=== PATIENT | female | born 1945 | race Caucasian/White ===

== ENCOUNTER 2017-08-18 21:02 | Emergency (ER) | payer BC ==
--- NOTE | 2017-08-18 21:14 | PDOC ---
Rapid Medical Evaluation Time Seen by Provider: 08/18/17 21:11 Medical Evaluation: Allergies Allergy/AdvReac Type Severity Reaction Status Date / Time No Known Allergies Allergy Verified 03/03/15 01:59 08/18/17 21:11 I have performed a brief in-person evaluation of this patient. The patient presents with a chief complaint of: left lateral neck pain starting at 1330 today Pertinent physical exam findings: left SCM spasm. I have ordered the following: nothing The patient will proceed to the ED for further evaluation. Discharge Disposition - Diagnosis Neck pain - Referrals - Patient Instructions - Post Discharge Activity
[2017-08-18 21:20] VITALS: BP 133/92; PULSE 87; TEMP 97.7; BMI 23.6
--- NOTE | 2017-08-18 21:55 | PDOC ---
History of Present Illness - General Chief Complaint: Pain Stated Complaint: NECK PAIN Time Seen by Provider: 08/18/17 21:11 - History of Present Illness Initial Comments: 71-year-old female with a past medical history significant for hypertension and a coma presents for evaluation of one day of left-sided neck pain. She describes her pain is achy exacerbated with motion relieved with rest and without radiation. She took Naprosyn today and got some relief. 08/18/17 21:52 Past History - Past Medical History Allergies/Adverse Reactions: Allergies Allergy/AdvReac Type Severity Reaction Status Date / Time No Known Allergies Allergy Verified 03/03/15 01:59 Home Medications: Ambulatory Orders Lisinopril 20 mg PO DAILY #7 tablet 10/09/14 Cyclobenzaprine HCl [Flexeril 10 mg] 10 mg PO HS PRN #10 tablet 08/18/17 Anemia: No Asthma: No Cancer: No Cardiac Disorders: Yes (HEART MURMUR) CVA: No COPD: No CHF: No DVT: No Dementia: No Diabetes: No GI Disorders: Yes (DYSPHAGIA, GERD, H/O H.PYLORI) Disorders: No HTN: Yes Liver Disease: No Seizures: No Thyroid Disease: No Other medical history: glaucoma, arthritis - Surgical History Abdominal Surgery: No Appendectomy: No Cardiac Surgery: No Cholecystectomy: No Lung Surgery: No Neurologic Surgery: No Orthopedic Surgery: No - Immunization History Immunization Up to Date: Yes - Suicide/Smoking/Psychosocial Hx Smoking Status: No Smoking History: Never smoked Number of Cigarettes Smoked Daily: 0 Information on smoking cessation initiated: No Hx Alcohol Use: No Drug/Substance Use Hx: No Substance Use Type: None Review of Systems - Review of Systems Musculoskeletal: Yes: Muscle Pain, Neck Pain All Other Systems: Reviewed and Negative *Physical Exam - Vital Signs Last Vital Signs Temp Pulse Resp BP Pulse Ox 97.7 F 87 20 133/92 98 08/18/17 21:16 08/18/17 21:16 08/18/17 21:16 08/18/17 21:16 08/18/17 21:16 - Physical Exam Comments: Cervical spine skin color and temperature within normal limits she has decreased range of motion she has tenderness in the left trapezium. She has 5 out of 5 strength in bilateral upper extremities without any gross sensorimotor deficits she is unable to tolerate her Spurling maneuver but she has no radicular symptoms. She is neurovascularly intact. 08/18/17 21:52 Medical Decision Making - Medical Decision Making This is a cervical strain in the 71-year-old female I'll treat her with Flexeril and close follow-up with her primary care physician. 08/18/17 21:53 *DC/Admit/Observation/Transfer Diagnosis at time of Disposition: Neck pain, Cervical strain - Discharge Dispostion Disposition: HOME Condition at time of disposition: Stable Decision to Admit order: No - Referrals Referrals: James Bartholomew MD [Primary Care Provider] - - Patient Instructions Printed Discharge Instructions: DI for Cervical Muscle Strain Additional Instructions: Return to the emergency room should her symptoms worsen or go unresolved. I've called when a muscle relaxer which will make you sleepy. Take the pill before bedtime. Follow-up with your primary care physician for further evaluation or treatment options. Do not take any more Naprosyn or any other anti- inflammatories as this will interfere with her hypertensive medicine - Post Discharge Activity
== END 2017-08-18 21:55 | disposition home or self-care (01) ==
LOC: JERFT 21:02
DX: S16.1XXA Strain of muscle, fascia and tendon at neck level, initial encounter (principal); I10 Essential (primary) hypertension; R01.1 Cardiac murmur, unspecified; M12.9 Arthropathy, unspecified; H40.9 Unspecified glaucoma; Z87.19 Personal history of other diseases of the digestive system; X58.XXXA Exposure to other specified factors, initial encounter; Y93.89 Activity, other specified; Y92.039 Unspecified place in apartment as the place of occurrence of the external cause; Y99.8 Other external cause status
CPT/HCPCS: 99281-25

== ENCOUNTER 2018-05-23 22:49 | Inpatient (IN) | payer BC ==
--- NOTE | 2018-05-24 00:01 | PDOC ---
History of Present Illness - General Chief Complaint: Pain, Acute Stated Complaint: PAIN Time Seen by Provider: 05/23/18 23:56 History Source: Patient, Old Records Exam Limitations: No Limitations - History of Present Illness Initial Comments: HPI: 72 y/o female presenting to [facility] complaining of worsening acute on chronic left shoulder pain. Pt reports falling in January 2018 onto the left shoulder. Has experienced pain ever since. Denies new trauma to the area. States the pain is just more intense. Starts in the middle of her shoulder and travels throughout the whole arm. Has difficulty lifting the arm above 90 degrees. Was evaluated at this facility in Mar 2018 and told it was likely arthritic changes. Followed up with PCP, Dr. Bartholomew, who injected the joint. Pt reports this did not help. Now uses Naproxen and Tylenol daily for the pain. Incidentally, the pt states she did not take all of her home antihypertensives. Found her BP to be elevated to 160s and her pulse rate was fast. Denies chest pain or shortness of breath. Reports normal cardiac cath in 2010. PCP: Dr. Bartholomew Medical Hx: - HTN Past History - Past Medical History Allergies/Adverse Reactions: Allergies Allergy/AdvReac Type Severity Reaction Status Date / Time No Known Allergies Allergy Verified 03/03/15 01:59 Home Medications: Ambulatory Orders Lisinopril 20 mg PO DAILY #7 tablet 10/09/14 Cyclobenzaprine HCl [Flexeril 10 mg] 10 mg PO HS PRN #10 tablet 08/18/17 Anemia: No Asthma: No Cancer: No Cardiac Disorders: Yes (HEART MURMUR) CVA: No COPD: No CHF: No DVT: No Dementia: No Diabetes: No GI Disorders: Yes (DYSPHAGIA, GERD, H/O H.PYLORI) Disorders: No HTN: Yes Liver Disease: No Seizures: No Thyroid Disease: No - Surgical History Abdominal Surgery: No Appendectomy: No Cardiac Surgery: No Cholecystectomy: No Lung Surgery: No Neurologic Surgery: No Orthopedic Surgery: No - Immunization History Immunization Up to Date: Yes - Suicide/Smoking/Psychosocial Hx Smoking Status: No Smoking History: Never smoked Number of Cigarettes Smoked Daily: 0 Information on smoking cessation initiated: No Hx Alcohol Use: No Drug/Substance Use Hx: No Substance Use Type: None Review of Systems - Review of Systems Able to Perform ROS?: Yes Comments:: In addition to that documented in the HPI above, the additional ROS was obtained : Constitutional: Denies fevers or chills Head: Denies vision changes ENMT: Denies sore throat CV: Denies chest pain Resp: Denies SOB GI: Denies vomiting or diarrhea : Denies painful urination MSK: Per HPI Skin: Denies new rashes Neuro: Denies new numbness or tingling or weakness Endocrine: Denies polyuria Heme: Denies bleeding or bruising *Physical Exam - Vital Signs Last Vital Signs Temp Pulse Resp BP Pulse Ox 98.1 F 130 H 20 165/92 96 05/23/18 22:50 05/23/18 22:50 05/23/18 22:50 05/23/18 22:50 05/23/18 22:50 - Physical Exam Comments: Constitutional: Well-developed, well-nourished elderly adult female in no acute distress but obvious mild discomfort. Found semi-fowlers on hospital bed. Alert and oriented x4. Answered all questions appropriately and completely. Speech was non-labored, non-pressured. Head: Normocephalic. No obvious external signs of trauma. Eyes: Sclerae white. Ears: Hearing grossly intact. Nose: No nasal discharge. Neck: Supple, trachea is midline. Cardiovascular / Chest: Irregularly irregular rate and rhythm. No murmur, rubs, clicks, or gallops. Peripheral pulses: radial pulses full. No pretibial edema. Respiratory: Breathing unlabored. Equal chest rise and fall. Clear to auscultation bilaterally. No stridor, no wheezing, no rhonchi. Gastrointestinal: abdomen is soft, non-tender, non-distended. Neuro: Alert and oriented. Moving all four extremities spontaneously. Skin: Warm, dry, and intact. No bruising, rashes, or other lesions. MSK: Pain with point tenderness to left shoulder. Worse when abducting shoulder. No obvious bony deformities. Able to flex and extend at elbow and wrist. No obvious scapula or clavicle deformities. Psych: Affect: appropriate. Mood: normal. ED Treatment Course - LABORATORY CBC & Chemistry Diagram: 05/24/18 00:46 05/24/18 00:46 - ADDITIONAL ORDERS Additional order review: 05/24/18 05/24/18 00:46 00:46 PT with INR 11.20 INR 0.95 PTT (Actin FS) 34.3 Sodium 143 Potassium 3.4 L Chloride 108 H Carbon Dioxide 27 Anion Gap 8 BUN 16 Creatinine 0.5 L Creat Clearance w eGFR 120.61 Random Glucose 116 H Calcium 8.8 Total Bilirubin 0.5 AST 42 H ALT 50 Alkaline Phosphatase 78 Creatine Kinase 194 H Troponin I < 0.02 Total Protein 7.1 Albumin 4.0 05/24/18 00:46 RBC 4.25 MCV 87.4 MCHC 33.0 RDW 14.2 MPV 8.1 Neutrophils % 80.0 D Lymphocytes % 13.5 D Monocytes % 5.4 Eosinophils % 0.5 Basophils % 0.6 Medical Decision Making - Medical Decision Making *Reviewed vital signs, nursing notes, and prior visit documentation (if available). 72 y/o female presenting for worsening acute on chronic left shoulder pain. Found to be hypertensive and tachycardic in triage. Afebrile. Suspect hypertension is secondary to not adherence to antihypertensives this morning. EKG revealed atrial fibrillation. No history of similar rhythm in previous EKGs. Low suspicion for ACS, however pts worsening shoulder pain is possibly an anginal equivalent. Will obtain CBC, CMP, Troponin, and Coags. Will obtain CXR and repeat the imaging of the left shoulder. Troponin not elevated. Low suspicion for acute RI as pt states pain has been worse for >3 hours. 02:[address] Bartholomew. Verbally appraised of the pts HPI, ED course, and current plan of management. Requests the pt be anticoagulated with lovenox. Requested cardiology consult with Dr. Baeza. Request placed in [facility]. Pts CXR unremarkable for acute cardiopulmonary process per ED wet read. Radiology report pending. Left shoulder films pending at time of admission. *DC/Admit/Observation/Transfer Diagnosis at time of Disposition: New onset a-fib Left shoulder pain Qualifiers: Chronicity: chronic Qualified Code(s): M25.512 - Pain in left shoulder - Discharge Dispostion Condition at time of disposition: Fair Decision to Admit order: Yes - Referrals - Patient Instructions - Post Discharge Activity
[2018-05-24] MEDS ORDERED: ONDANSETRON 4 MG/2 ML VIAL IVPUSH ONE (00:24)
[2018-05-24] MEDS ORDERED: morphine CARPU-JECT 2 MG/1 ML DISP.SYRIN IVPUSH ONE (00:24)
[2018-05-24] MEDS ORDERED: SODIUM CHLORIDE 0.9% 500 ML INFUS.BAG IV ONE (00:25)
[2018-05-24 00:54] LABS: BASO % 0.6 % (0-2.0); EOS % 0.5 % (0-4.5); HEMATOCRIT 37.2 % (32.4-45.2); HEMOGLOBIN 12.3 GM/dL (10.7-15.3); LYMPH % 13.5 % (8-40); MCH 28.8 pg (25.7-33.7); MEAN CELL VOLUME 87.4 fl (80-96); MEAN PLT VOLUME 8.1 fl (7.5-11.1); MONO % 5.4 % (3.8-10.2); PLATELET COUNT 221 K/MM3 (134-434); RBC 4.25 M/mm3 (3.60-5.2); RDW 14.2 % (11.6-15.6); WHITE BLOOD COUNT 10.2 K/mm3 (4.0-10.0)
[2018-05-24] MEDS ORDERED: MORPHINE SULFATE 2 MG/ML VIAL ONE (01:04)
[2018-05-24] MEDS ORDERED: ONDANSETRON 4 MG/2 ML VIAL ONE (01:06)
--- NOTE | 2018-05-24 01:18 | PDOC ---
Attending Attestation - Resident Resident Name: Bereket Loera - ED Attending Attestation I have performed the following: I have examined & evaluated the patient, The case was reviewed & discussed with the resident, I agree w/resident's findings & plan, Exceptions are as noted - HPI HPI: 05/24/18 01:28 Conversant 72-year-old female presented to the emergency room because of persistent but increasing pain in her left shoulder. She had fallen some months ago and has since had limited range of motion of his left shoulder. She has had prior radiographs of the shoulder since the trauma, and they have always been negative for any fracture Upon arrival, she was in rapid A. flutter with a rate of 130 - Physicial Exam PE: 05/24/18 01:30 Well-nourished well-developed 72-year-old female who is currently in no acute distress. Head is normocephalic, atraumatic eyes maxim eomi Neck is supple Lungs clear to auscultation. CVS Irregularly irregular rhythm ext no edema skin warm and dry Left arm has intact sensation,no obvious deformity,good ulna and radial pulses, pt cannot raise her left arm above her head due to pain neuro axox3,ambulatory,no gross focal neuro deficits psych appropriate - Medical Decision Making 05/24/18 01:34 pt is currently in rate controlled aflutter denies any chest pain or sob will admit to telemetry, new onset AFIB,aflutter, anticoagulant
[2018-05-24] MEDS ORDERED: ASPIRIN 81 MG CHEWABLE TABLETS PO ONE (01:22)
[2018-05-24 01:26] LABS: ALK PHOS 78 U/L (45-117); ANION GAP 8 MMOL/L (8-16); BILIRUBIN,TOTAL 0.5 mg/dL (0.2-1); BLOOD UREA NITROGEN 16 mg/dL (7-18); CALCIUM 8.8 mg/dL (8.5-10.1); CHLORIDE 108 mmol/L (98-107); CO2 27 mmol/L (21-32); CREATININE 0.5 mg/dL (0.55-1.3); GLUCOSE,RANDOM 116 mg/dL (74-106); POTASSIUM 3.4 mmol/L (3.5-5.1); SGOT/AST 42 U/L (15-37); SGPT/ALT 50 U/L (13-61); SODIUM 143 mmol/L (136-145); TOT PROT 7.1 g/dl (6.4-8.2)
[2018-05-24] MEDS ORDERED: ASPIRIN 325 MG TABLET ONE (01:30)
[2018-05-24 01:32] LABS: INR 0.95 (0.83-1.09); PROTHROMBIN TIME (PATIENT) 11.2 SEC (9.7-13.0)
[2018-05-24 01:35] LABS: ACTIVATED PTT 34.3 SECONDS (25.2-36.5)
[2018-05-24] MEDS ORDERED: ENOXAPARIN NA (PORCINE) 80 MG/0.8 ML DISP.SYRIN SQ ONE ×2 (02:03→03:25)
--- NOTE | 2018-05-24 10:41 | CON.CARD ---
Consult Consult Specialty:: Cardiology Referred by:: Dr. Bartholomew Reason for Consultation:: Cardiac evaluation - History of Present Illness Chief Complaint: Left shoulder pain but also with atrial flutter/fibrillation History of Present Illness: Patient is a 72 year old female with history of HTN who presents with persistent left shoulder pain and difficult raising the left arm. She had fallen back in January onto her left side and had seen Dr. Bartholomew. She did not see an Orthopedic surgeon at that time. She denies chest pain, SOB or palpitations. She denies paroxysmal nocturnal dyspnea or orthopnea. She denies fever or chills. She denies nausea, vomiting, diarrhea or abdominal pain. She denies headache or lightheadedness. ECG reveals atrial flutter with variable block. This appears to be a new onset and she had not taken any anticoagulation previously. She is awake and alert. She denies cough or expectorations. She was found with elevated BP to 160 systolic with tachycardia in the ER. - History Source History Provided By: Patient, Medical Record Limitations to Obtaining History: No Limitations - Past Medical History Cardio/Vascular: Yes: HTN - Past Surgical History Past Surgical History: Yes: None - Alcohol/Substance Use Hx Alcohol Use: Yes (Social) - Smoking History Smoking history: Never smoked Aproximately how many cigarettes per day: 0 Home Medications - Allergies Allergies/Adverse Reactions: Allergies Allergy/AdvReac Type Severity Reaction Status Date / Time No Known Allergies Allergy Verified 05/24/18 05:33 - Home Medications Home Medications: Ambulatory Orders Lisinopril 20 mg PO DAILY #7 tablet 10/09/14 Cyclobenzaprine HCl [Flexeril 10 mg] 10 mg PO HS PRN #10 tablet 08/18/17 Family Disease History - Family Disease History Family History: Denies Review of Systems - Review of Systems Constitutional: denies: Chills, Fever Cardiovascular: denies: Chest Pain, Palpitations, Shortness of Breath Respiratory: denies: Cough, Hemoptysis, Orthopnea, PND, SOB, SOB on Exertion, Wheezing Gastrointestinal: denies: Abdominal Pain, Constipation, Diarrhea, Melena, Nausea , Rectal Bleeding, Vomiting Genitourinary: denies: Dysuria, Hematuria Musculoskeletal: reports: Joint Pain Neurological: denies: Dizziness, Headache, Seizure, Syncope Vital Signs: Vital Signs Temperature 98.1 F 05/24/18 06:54 Pulse Rate 62 05/24/18 06:54 Respiratory Rate 20 05/23/18 22:50 Blood Pressure 121/78 05/24/18 06:54 O2 Sat by Pulse Oximetry (%) 97 05/24/18 06:54 Eyes: Yes: PERRL HENT: Yes: Atraumatic Neck: Yes: Supple Respiratory: Yes: CTA Bilaterally Gastrointestinal: Yes: Normal Bowel Sounds, Soft. No: Tenderness Cardiovascular: Yes: Pulse Irregular JVD: No PMI: Non-Displaced Heart Sounds: Yes: S1, S2. No: Gallop Murmur: No: Systolic Murmur, Diastolic Murmur Edema: No - Other Data Labs, Other Data: CBC, BMP 05/24/18 00:46 05/24/18 00:46 INR, PTT INR 0.95 (0.83-1.09) 05/24/18 00:46 Troponin, BNP 05/24/18 00:46 Troponin I < 0.02 Troponin, BNP 05/24/18 00:46 Troponin I < 0.02 Atrial flutter with variable block Echo: Pending Imaging - Results Chest X-ray: Report Reviewed (Unremarkable) X-ray: Report Reviewed (Shoulder XRay - calcification in the joint) EKG: Report Reviewed Problem List - Problems (1) Atrial flutter Code(s): I48.92 - UNSPECIFIED ATRIAL FLUTTER Qualifiers: Atrial flutter type: typical Qualified Code(s): I48.3 - Typical atrial flutter (2) HTN (hypertension) Code(s): I10 - ESSENTIAL (PRIMARY) HYPERTENSION Qualifiers: Hypertension type: essential hypertension Qualified Code(s): I10 - Essential (primary) hypertension (3) Left shoulder pain Code(s): M25.512 - PAIN IN LEFT SHOULDER Qualifiers: Chronicity: chronic Qualified Code(s): M25.512 - Pain in left shoulder; G89.29 - Other chronic pain (4) New onset a-fib Code(s): I48.91 - UNSPECIFIED ATRIAL FIBRILLATION Assessment/Plan 1. New onset atrial flutter with variable block, [id number] score likely 4 2. HTN 3. Shoulder pain suggests degenerative joint +/- fall injury PLAN: 1. Start anticoagulation - consider DOAC - Eliquis 5 mg BID 2. Add small dose of beta moshe - Metoprolol Tartrate 25 mg BID 3. D/C Lovenox 4. Echocardiography to assess LV/RV and valvular function 5. If remains in AF/flutter, she may need further intervention including ELVIN guided synchronized cardioversion either inpatient or as outpatient 6. Telemetry monitoring Further plans are to follow Thank you for the consultation opportunity Jacques Schroeder MD
[2018-05-24] MEDS ORDERED: LISINOPRIL 10 MG TABLET (FP) PO SCH (11:00)
[2018-05-24] MEDS ORDERED: LISINOPRIL 20 MG TABLET (FP) ONE (11:14)
[2018-05-24] MEDS ORDERED: METOPROLOL TARTRATE 25 MG TABLET (FP) ONE (11:14)
[2018-05-24] MEDS ORDERED: APIXABAN 5 MG TABLET PO ONE (11:14)
[2018-05-24] MEDS: APIXABAN 5 MG TABLET PO SCH ×2 (11:21→22:16)
[2018-05-24] MEDS: METOPROLOL TARTRATE 25 MG TABLET (FP) PO SCH ×2 (11:21→22:16)
--- NOTE | 2018-05-24 14:16 | ECHO ---
Version: 1 Name: TORRES SEGOVIA Exam: Adult Echocardiogram Study Date: 05/24/2018, 11:41 AM Age: 72 Years MMode/2D Measurements & Calculations IVSd: 1.11 cm LVIDs: 2.21 cm LVIDd: 3.0 cm LVPWd: 1.19 cm ACS: 1.97 cm LA dimension: 3.3 cm LVOT diam: 1.86 cm Doppler Measurements & Calculations MV E max john: 109.6 cm/sec Med E/e': 11.0 MV A max john: 39.5 cm/sec Med Peak E' John: 10.0 cm/sec MV E/A: 2.8 Lat E/e': 23.8 Lat Peak E' John: 4.6 cm/sec PI end-d john: 86.9 cm/sec TR max john: 305.0 cm/sec TR max P.3 mmHg Left Ventricle The left ventricular size, thickness and function are normal. Right Ventricle The right ventricle is normal in size and function. Atria Normal left and right atrial size and function. Mitral Valve The mitral valve is normal. Moderate MR. Tricuspid Valve Normal TV with mild to moderate TR. Aortic Valve The aortic valve is normal in structure and function. Pulmonic Valve The pulmonic valve is normal in structure and function. Great Vessels The aortic root is normal size. Summary Statements The left ventricular size, thickness and function are normal The right ventricle is normal in size and function. Normal left and right atrial size and function. The mitral valve is normal. Moderate MR. Normal TV with mild to moderate TR The aortic valve is normal in structure and function. PASP 39 - 44 mmHg Mild pulmonary HTN Estimated EF 55% Heart rhythm was irregular MD Alek Matthew 05/24/2018, 1:15 PM Ordering Physician: Jacques Schroeder Performed By: Kellie Bueno
--- NOTE | 2018-05-24 14:42 | EKG ---
Test Reason : Blood Pressure : / mmHG Vent. Rate : 103 BPM Atrial Rate : 288 BPM P-R Int : 000 ms QRS Dur : 104 ms QT Int : 350 ms P-R-T Axes : -61 -16 -09 degrees QTc Int : 458 ms ATRIAL FLUTTER WITH VARIABLE A-V BLOCK NONSPECIFIC ST AND T WAVE ABNORMALITY ABNORMAL ECG WHEN COMPARED WITH ECG OF 02-FEB-2015 17:37, ATRIAL FLUTTER HAS REPLACED SINUS RHYTHM VENT. RATE HAS INCREASED BY 46 BPM NONSPECIFIC T WAVE ABNORMALITY NOW EVIDENT IN INFERIOR LEADS T WAVE INVERSION NOW EVIDENT IN LATERAL LEADS Confirmed by Tim Powell ([id number]) on 05/24/2018 2:41:51 PM Referred By: Confirmed By:Tim Powell
[2018-05-24] MEDS ORDERED: ACETAMINOPHEN 325 MG TABLET (FP) ONE (16:00)
[2018-05-24 18:41] VITALS: BMI 24.5
[2018-05-24] MEDS: ACETAMINOPHEN 325 MG TABLET (FP) PO PRN (22:14)
[2018-05-25] MEDS ORDERED: amLODIPine BESYLATE 5 MG TABLET (FP) PO SCH (10:00)
--- NOTE | 2018-05-25 10:12 | PN ---
Progress Note, Physician History of Present Illness: She denies chest pain, dyspnea, palpitations, near or true syncope. - Current Medication List Current Medications: Active Medications Acetaminophen (Tylenol -) 650 mg PO Q6H PRN PRN Reason: PAIN 1-3 Last Admin: 05/24/18 22:14 Dose: 650 mg Amlodipine Besylate (Norvasc -) 5 mg PO DAILY [facility] Apixaban (Eliquis -) 5 mg PO BID [facility] Last Admin: 05/24/18 22:16 Dose: 5 mg Metoprolol Tartrate (Lopressor -) 25 mg PO BID [facility] Last Admin: 05/24/18 22:16 Dose: 25 mg Potassium Chloride (K-Dur -) 20 meq PO BID [facility] - Objective Vital Signs: Vital Signs Temperature 97.8 F 05/25/18 08:55 Pulse Rate 58 L 05/25/18 08:55 Respiratory Rate 18 05/25/18 08:55 Blood Pressure 136/68 05/25/18 08:55 O2 Sat by Pulse Oximetry (%) 97 05/24/18 06:54 Constitutional: Yes: No Distress, Calm, Thin Neck: Yes: Supple Cardiovascular: Yes: Tachycardia, Pulse Irregular Respiratory: Yes: Regular, CTA Bilaterally Gastrointestinal: Yes: Normal Bowel Sounds, Soft Edema: No Labs: CBC, BMP 05/24/18 00:46 05/24/18 00:46 INR, PTT INR 0.95 (0.83-1.09) 05/24/18 00:46 - ....Imaging EKG: Report Reviewed (Tele: Aflutter with variable response) Problem List - Problems (1) Atrial flutter Code(s): I48.92 - UNSPECIFIED ATRIAL FLUTTER Qualifiers: Atrial flutter type: typical Qualified Code(s): I48.3 - Typical atrial flutter (2) HTN (hypertension) Code(s): I10 - ESSENTIAL (PRIMARY) HYPERTENSION Qualifiers: Hypertension type: essential hypertension Qualified Code(s): I10 - Essential (primary) hypertension Assessment/Plan 05/24/2018 Echo: Normal LV and RV size and fxn LVEF 55%, normal atrial sizes, mod MR, mild-mod TR, mild pulm HTN 1. New onset atrial flutter with variable block, [id number] score likely 4 2. HTN 3. Shoulder pain suggests degenerative joint +/- fall injury PLAN: 1. Continue Eliquis 5 mg BID 2. Continue Metoprolol Tartrate 25 mg BID, lisinopril 20 qd, change Norvasc to Cardizem CD 120 qd 3. If remains in AF/flutter with suboptimal rate-control, she may need further intervention including ELVIN guided synchronized cardioversion either inpatient or as outpatient 4. Telemetry monitoring
[2018-05-25] MEDS: APIXABAN 5 MG TABLET PO SCH ×2 (10:22→22:07)
[2018-05-25] MEDS: POTASSIUM CHLORIDE TABS 20 MEQ TABLET.ER (FP) PO SCH ×2 (10:22→22:07)
[2018-05-25] MEDS: METOPROLOL TARTRATE 25 MG TABLET (FP) PO SCH ×2 (10:22→22:07)
--- NOTE | 2018-05-25 10:45 | HP ---
DATE OF ADMISSION: 05/24/2018 HISTORY OF PRESENT ILLNESS: This is a 72-year-old female known to have hypertension who came to the emergency room with complaints of left shoulder pain. She was seen in the office before 2-3 months ago with complaints of left shoulder pain after a fall. It was unremarkable at that time. She continued to have more pain yesterday, so came to the emergency room. In the ER, it was found out that she has atrial fibrillation. So, she got admitted. Evaluated by Dr. Schroeder, his impression was that patient has new onset of atrial flutter/fibrillation. She was started on anticoagulation and beta-moshe. This morning, she says she is feeling better. She wants to go home. She has grown up children, lives with . SOCIAL HISTORY: She is not a smoker. ALLERGIES: No known allergies. PHYSICAL EXAMINATION: Vital signs: Her blood pressure is 136/68, pulse 98, respirations 20, temperature 98. HEENT: Unremarkable. Neck: Supple. No JVD. Lungs: Clear. Heart: S1, S2 normal. No S3, S4. Abdomen: Soft, nontender. Extremities: Legs, no edema. Neurologic: Grossly normal. LABORATORY REPORTS: WBC 10, hemoglobin 12.3, hematocrit 37. Chemistry: Sodium 143, potassium 3.4, chloride 108. FINAL DIAGNOSIS: New onset atrial fibrillation, hypertension, hypokalemia. PLAN: Continue as spice mixer ordered, blood thinner, Eliquis, beta-moshe, and 2 g sodium diet. Mitzy [id number]
[2018-05-26] MEDS: ACETAMINOPHEN 325 MG TABLET (FP) PO PRN (06:33)
[2018-05-26 07:49] LABS: HEMATOCRIT 34.5 % (32.4-45.2); HEMOGLOBIN 11.5 GM/dL (10.7-15.3); MCH 29.1 pg (25.7-33.7); MCHC 33.2 g/dl (32.0-36.0); MEAN CELL VOLUME 87.6 fl (80-96); MEAN PLT VOLUME 8.2 fl (7.5-11.1); PLATELET COUNT 213 K/MM3 (134-434); RBC 3.94 M/mm3 (3.60-5.2); RDW 14.4 % (11.6-15.6); WHITE BLOOD COUNT 5.9 K/mm3 (4.0-10.0)
[2018-05-26 08:38] LABS: ALBUMIN 3.1 g/dl (3.4-5.0); ALK PHOS 123 U/L (45-117); ANION GAP 7 MMOL/L (8-16); BILIRUBIN,TOTAL 0.4 mg/dL (0.2-1); BLOOD UREA NITROGEN 20 mg/dL (7-18); CALCIUM 8.5 mg/dL (8.5-10.1); CHLORIDE 109 mmol/L (98-107); CO2 27 mmol/L (21-32); CREATININE 0.6 mg/dL (0.55-1.3); GLUCOSE,RANDOM 107 mg/dL (74-106); POTASSIUM 4.7 mmol/L (3.5-5.1); SGOT/AST 131 U/L (15-37); SGPT/ALT 145 U/L (13-61); SODIUM 142 mmol/L (136-145); TOT PROT 5.8 g/dl (6.4-8.2)
[2018-05-26 09:36] VITALS: BP 128/66; PULSE 60; TEMP 98.2
--- NOTE | 2018-05-26 09:41 | DS ---
Physical Examination Vital Signs: Vital Signs Temperature 98.2 F 05/26/18 09:00 Pulse Rate 60 05/26/18 09:00 Respiratory Rate 18 05/26/18 09:00 Blood Pressure 128/66 05/26/18 09:00 O2 Sat by Pulse Oximetry (%) 95 05/25/18 21:00 Findings/Remarks: Admitted with new onset Afib ,rate well controlled DC home Constitutional: Yes: No Distress Eyes: Yes: WNL HENT: Yes: WNL Neck: Yes: WNL Cardiovascular: Yes: WNL, Other (Afib Vrate 68) Respiratory: Yes: WNL Renal/: Yes: WNL Musculoskeletal: Yes: WNL Psychiatric: Yes: Alert Labs: CBC, BMP 05/26/18 06:23 05/26/18 06:23 Discharge Summary Reason For Visit: NEW ONSET ATRIAL FIBRILLATION LEFT SHOULDER PAIN Current Active Problems Atrial flutter (Acute) HTN (hypertension) (Acute) Left shoulder pain (Acute) New onset a-fib (Acute) Condition: Fair - Instructions - Home Medications Comprehensive Discharge Medication List: Ambulatory Orders Lisinopril 20 mg PO DAILY #7 tablet 10/09/14 Cyclobenzaprine HCl [Flexeril 10 mg] 10 mg PO HS PRN #10 tablet 08/18/17
--- NOTE | 2018-05-26 10:01 | PN ---
Progress Note, Physician History of Present Illness: She denies chest pain, dyspnea, palpitations, near or true syncope. Slow aflutter after initiation of Cardizem. - Current Medication List Current Medications: Active Medications Acetaminophen (Tylenol -) 650 mg PO Q6H PRN PRN Reason: PAIN 1-3 Last Admin: 05/26/18 06:33 Dose: 325 mg Apixaban (Eliquis -) 5 mg PO BID [facility] Last Admin: 05/25/18 22:07 Dose: 5 mg Diltiazem HCl (Cardizem Cd -) 120 mg PO DAILY [facility] Last Admin: 05/25/18 13:28 Dose: 120 mg Metoprolol Tartrate (Lopressor -) 25 mg PO BID [facility] Last Admin: 05/25/18 22:07 Dose: 25 mg Potassium Chloride (K-Dur -) 20 meq PO BID [facility] Last Admin: 05/25/18 22:07 Dose: 20 meq - Objective Vital Signs: Vital Signs Temperature 98.2 F 05/26/18 09:00 Pulse Rate 60 05/26/18 09:00 Respiratory Rate 18 05/26/18 09:00 Blood Pressure 128/66 05/26/18 09:00 O2 Sat by Pulse Oximetry (%) 95 05/25/18 21:00 Constitutional: Yes: No Distress, Calm Neck: Yes: Supple Cardiovascular: Yes: Regular Rate and Rhythm Respiratory: Yes: Regular, CTA Bilaterally Gastrointestinal: Yes: Normal Bowel Sounds, Soft Edema: No Labs: CBC, BMP 05/26/18 06:23 05/26/18 06:23 INR, PTT INR 0.95 (0.83-1.09) 05/24/18 00:46 - ....Imaging EKG: Report Reviewed (Tele: slow aflutter) Problem List - Problems (1) Atrial flutter Code(s): I48.92 - UNSPECIFIED ATRIAL FLUTTER Qualifiers: Atrial flutter type: typical Qualified Code(s): I48.3 - Typical atrial flutter (2) HTN (hypertension) Code(s): I10 - ESSENTIAL (PRIMARY) HYPERTENSION Qualifiers: Hypertension type: essential hypertension Qualified Code(s): I10 - Essential (primary) hypertension Assessment/Plan 05/24/2018 Echo: Normal LV and RV size and fxn LVEF 55%, normal atrial sizes, mod MR, mild-mod TR, mild pulm HTN 1. New onset atrial flutter with variable block, [id number] score likely 4 2. HTN 3. Shoulder pain suggests degenerative joint +/- fall injury PLAN: 1. Continue Eliquis 5 mg BID 2. D/c Metoprolol Tartrate 25 mg BID, continue lisinopril 20 qd, Cardizem CD 120 qd 3. Consider cardioversion as outpatient 4. D/c planning with f/u in office
[2018-05-26] MEDS: APIXABAN 5 MG TABLET PO SCH (10:09)
[2018-05-26] MEDS: POTASSIUM CHLORIDE TABS 20 MEQ TABLET.ER (FP) PO SCH (10:11)
== END 2018-05-26 10:52 | disposition home or self-care (01) | DRG 310 ==
LOC: JER 22:49 → JERBED 05-24 02:07 → J4W 05-24 17:43
PROVIDERS: ADMIT Internal Medicine; ATTEND Internal Medicine
DX: I48.92 Unspecified atrial flutter (principal); I48.91 Unspecified atrial fibrillation; I10 Essential (primary) hypertension; M25.512 Pain in left shoulder; E87.6 Hypokalemia; I27.20 Pulmonary hypertension, unspecified
CPT/HCPCS: 36415; 71046-TC-FY; 73030-TC-LT-FY; 80053; 82550; 82553; 84439; 84443; 84480; 84484; 85025; 85027; 85610; 85730; 93005; 93010; 93306-TC; 99284-25

== ENCOUNTER 2020-07-02 22:39 | Emergency (ER) | payer BC ==
[2020-07-02 22:42] VITALS: BP 138/90; TEMP 97.6; BMI 28.3
[2020-07-02 23:25] LABS: BASO % 0.6 % (0-2.0); EOS % 1.1 % (0-4.5); HEMOGLOBIN 12.6 GM/dL (10.7-15.3); LYMPH % 37.7 % (8-40); MCH 29.2 pg (25.7-33.7); MCHC 33.9 g/dl (32.0-36.0); MEAN CELL VOLUME 86.1 fl (80-96); MEAN PLT VOLUME 8.4 fl (7.5-11.1); MONO % 8.6 % (3.8-10.2); PLATELET COUNT 225 K/MM3 (134-434); RDW 14.5 % (11.6-15.6); WHITE BLOOD COUNT 6.9 K/mm3 (4.0-10.0)
[2020-07-02 23:51] LABS: CHLORIDE 106 mmol/L (98-107); SODIUM 142 mmol/L (136-145)
[2020-07-02 23:53] LABS: ALBUMIN 4.3 g/dl (3.4-5.0); ANION GAP 11 MMOL/L (8-16); BLOOD UREA NITROGEN 20.1 mg/dL (7-18); CO2 26 mmol/L (21-32); GLUCOSE,RANDOM 99 mg/dL (74-106)
[2020-07-02 23:56] LABS: CREATININE 0.6 mg/dL (0.55-1.3); SGOT/AST 23 U/L (15-37); SGPT/ALT 29 U/L (13-61)
[2020-07-02 23:57] LABS: BILIRUBIN,TOTAL 0.5 mg/dL (0.2-1); TOT PROT 7.5 g/dl (6.4-8.2)
[2020-07-02 23:58] LABS: ALK PHOS 85 U/L (45-117)
[2020-07-03] MEDS ORDERED: MECLIZINE HCL 25 MG TABLET (FP) PO ONE ×2 (00:11→00:21)
[2020-07-03] MEDS ORDERED: MECLIZINE HCL 25 MG TABLET (FP) ONE (00:17)
[2020-07-03 00:23] VITALS: PULSE 87
== END 2020-07-03 00:42 | disposition home or self-care (01) ==
LOC: JER 22:39
DX: R42 Dizziness and giddiness (principal); H81.10 Benign paroxysmal vertigo, unspecified ear
CPT/HCPCS: 36415; 71045-TC-FY; 80053; 82550; 82553; 83735; 84443; 84484; 85025; 93005; 93010; 99285-25

== ENCOUNTER 2020-08-12 05:03 | Day surgery (SDC) | payer BC ==
[2020-08-12 12:37] VITALS: BMI 24.7
[2020-08-12 12:59] VITALS: TEMP 98.1
[2020-08-12] MEDS ORDERED: LIDOCAINE VISCOUS 2% ORAL/TOP 20 ML UNIT-DOSE CUP ONE (13:17)
[2020-08-12] MEDS ORDERED: LIDOCAINE VISCOUS 2% ORAL/TOP 20 ML UNIT-DOSE CUP MM ONE (13:19)
[2020-08-12 15:17] VITALS: BP 144/68; PULSE 71
== END 2020-08-12 15:13 | disposition home or self-care (01) ==
LOC: JASU-ENDO 05:03
PROVIDERS: ATTEND Internal Medicine Cardiovascular Disease
PROC: B246ZZ4 Ultrasonography of Right and Left Heart, Transesophageal (ICD-10-PCS; 2020-08-12)
PROC: 5A2204Z Restoration of Cardiac Rhythm, Single (ICD-10-PCS; principal; 2020-08-12 13:00)
DX: I48.91 Unspecified atrial fibrillation (principal)
CPT/HCPCS: 92960; 93005; 93010; 93312; 93325